=== PATIENT | female | born 2000 | race Caucasian/White ===

== ENCOUNTER 2025-03-16 21:45 | Emergency (ER) | payer OTHER ==
[~2025-03-16] VITALS: Ht 165.1 cm; Wt 48.4 kg
[2025-03-16 21:50] VITALS: TEMP 96.8
[2025-03-16 22:20] LABS: MEAN PLATELET VOLUME 7.5 FL (7.4-10.4); RED CELL DISTRIBUTION WIDTH 12.4 % (11.5-14.5)
[2025-03-16 22:45] LABS: CREATININE 0.76 MG/DL (0.40-0.90); TOTAL CARBON DIOXIDE 26.2 MMOL/L (24-32); eCRCL 89 ML/MIN; eGFR > 90 ML/MIN
[2025-03-16] MEDS ORDERED: morphine 4 MG/ML inj SYRINge IV PRN (22:50)
--- NOTE | 2025-03-16 22:59 | Physician Documentation ---
History of Present Illness ~ Chief Complaint: Abdominal Pain Stated Complaint: ABD PAIN Time Seen by MD: 22:46 Source: patient Mode of Arrival: POV Exam Limitations: no limitations HPI Chief Complaint: Abdominal pain Caveat: None Independent Historians: None History of Present Illness: Patient is a 24-year-old woman who comes in complaining of epigastric and right upper quadrant abdominal pain. Patient states that she has had this before and was diagnosed with gallstones 8-9 months ago. Patient states that she has had two or three attacks this week. Earlier this evening she had some burning pain. Patient had a slice of pizza her parent's house for dinner and after that developed worsening severe pain. Pain is nonradiating. She also complains of a burning pain in her chest and pain radiating up into the chest. Patient denies any fever. Review of systems: All systems were reviewed and are negative except for what is indicated in the history of present illness. Past Medical History: Cholelithiasis Past Surgical History: None Social History: No tobacco use, no alcohol use, no drug use Medications: Reviewed as documented Nursing Notes Allergies: Reviewed as documented in Nursing Notes Medication Reconciliation Allergies: Coded Allergies: No Known Allergies (Unverified , 03/16/25) Review of Systems All Other Systems at this time: Reviewed and Negative ROS Patient denies any other acute symptoms other than above. All other systems are negative Physical Exam Vital Signs: RN Vital Signs have been reviewed: Yes, Temperature: 96.8, Source: Temporal, Heart Rate: 72, Respiratory Rate: 16, BP: 128/77, Pulse Oximetry: 99, Weight: 48.350 Pulse Oximetry Reflects: adequate oxygenation Physical Exam General Appearance: Moderate distress HEENT: Normal OP, moist oral mucosa, PERRL, EOMI Neck: supple, normal ROM, trachea midline Pulmonary: No respiratory distress, CTA, BS equal Cardiac: RRR, no murmur, rub or gallop, GI: nondistended, soft, RIGHT UPPER QUADRANT AND EPIGASTRIC TENDERNESS, normal bowel sounds, no guarding, no rebound Extremities: normal ROM, no swelling, non-tender Skin: intact, dry, warm, no rashes Neuro: AAOx3, speech is clear, no focal motor weakness Psych: normal affect, good eye contact, no apparent hallucination, normal speech Progress Results/Orders Results/Orders Orders - MADALYN RUTLEDGE MD Morphine 4mg/Ml Inj. (Morphine Inj.) (03/16/25 22:50) Ed Iv Pain Medications (03/16/25 22:46) Ultrasound Of Abdomen (03/16/25 22:46) Saline Lock (03/16/25 22:46) Completed Orders - MADAYLN RUTLEDGE MD Hcg, Ur Ql (03/16/25 21:53) Cbc/Diff (03/16/25 21:53) BMP (03/16/25 21:53) Lipase (03/16/25 21:53) CMP (03/16/25 21:53) Ondansetron Inj. (Zofran 4mg/2ml Vial) (03/16/25 22:50) Normal Saline 1000ml (0.9% Sodium Chlori (03/16/25 22:50) Ultrasound Of Abdomen (03/16/25 22:46) Ketorolac Trometh 15mg/Ml Vial (Toradol (03/16/25 22:50) Ua W/Microscopic, Cult If Ind (03/16/25 23:13) Medications Received in ER Medications (Trade) Dose Ordered Sig/Rey Route PRN Reason Start Time Stop Time Status Last Admin Dose Admin (Zofran 4mg/2ml vial) 4 mg ONCE ONCE IV 03/16/25 22:50 03/16/25 22:51 DC 03/16/25 23:12 4 MG (0.9% sodium chloride (NS) 1000ml IV soln) 1,000 ml ONCE ONCE IVB 03/16/25 22:50 03/16/25 22:51 DC 03/16/25 23:12 1,000 ML (Toradol injection) 15 mg ONCE ONCE IV 03/16/25 22:50 03/16/25 22:51 DC 03/16/25 23:12 15 MG Vital Signs 03/16/25 03/16/25 03/16/25 03/17/25 21:50 22:50 22:52 00:03 Temp 96.8 Pulse 104 72 64 Resp 15 18 16 16 B/P (MAP) 122/82 128/77 (94) 100/71 (81) Pulse Ox 99 99 100 03/17/25 01:27 Pulse 53 Resp 16 B/P (MAP) 94/57 (69) Pulse Ox 100 Laboratory Tests Test 03/16/25 22:12 03/16/25 23:13 White Blood Count 7.8 Red Blood Count 4.58 Hemoglobin 14.5 Hematocrit 41.0 Mean Corpuscular Volume 89.7 Mean Corpuscular Hemoglobin 31.6 H Mean Corpuscular Hemoglobin Concent 35.2 Red Cell Distribution Width 12.4 Platelet Count 387 Mean Platelet Volume 7.5 Neutrophils (%) (Auto) 58.4 Lymphocytes (%) (Auto) 31.8 Monocytes (%) (Auto) 8.0 Eosinophils (%) (Auto) 1.2 Basophils (%) (Auto) 0.6 Neutrophils # (Auto) 4.5 Lymphocytes # (Auto) 2.5 Monocytes # (Auto) 0.6 Eosinophils # (Auto) 0.1 Basophils # (Auto) 0.0 CBC Comment Sodium Level 137 Potassium Level 3.8 Chloride Level 103 Carbon Dioxide Level 26.2 Anion Gap 8 Blood Urea Nitrogen 15 Creatinine 0.76 Estimated GFR/1.73 m2 > 90 BUN/Creatinine Ratio 19.7 Glucose Level 89 Calcium Level 9.2 Total Bilirubin 0.4 Aspartate Amino Transf (AST/SGOT) 10 Alanine Aminotransferase (ALT/SGPT) 24 Alkaline Phosphatase 88 Total Protein 8.1 Albumin 4.5 Globulin 3.6 Albumin/Globulin Ratio 1.3 Lipase 26 Chemistry Comments Urine Specimen Description Cln catch midstream Urine Color Straw Urine Clarity Slightly cloudy Urine pH 6.0 Urine Specific [place] >=1.030 Urine Protein Trace Urine Glucose (UA) Negative Urine Ketones Trace H Urine Occult Blood Large H Urine Nitrite Negative Urine Bilirubin Negative Urine Urobilinogen 0.2 Urine Leukocyte Esterase Negative Urine RBC 50-100 Urine WBC 0-4 Urine Squamous Epithelial Cells Moderate Urine Bacteria Few Urine Mucus Few Urine Culture Indicated Not ind Volume Urine Centrifuged 10 ml Urine HCG, Qualitative Negative Urine Comment Medical Decision Making Findings Differential diagnosis includes but is not limited to: Cholelithiasis, biliary colic, choledocholithiasis, acute cholecystitis, pancreatitis, gastritis, hepatitis Abdominal ultrasound, indication: Gallstones Impression: 1. Nonmobile cholelithiasis and gallbladder wall thickening. These findings may be consistent with acute cholecystitis in the appropriate clinical setting. Laboratory data independent interpretation: CBC: Normal CMP: Normal, normal LFTs Lipase: 26 Urinalysis: Unremarkable, contaminated specimen Urine : Negative Emergency department course/medical decision-making: PATIENT PRESENTS WITH THE ACUTE ABDOMINAL PAIN CONSISTENT WITH BILIARY COLIC. I DO NOT SUSPECT THE PATIENT HAS ACUTE CHOLECYSTITIS. SHE IS AFEBRILE AND HAS A NORMAL WHITE BLOOD CELL COUNT. HOWEVER SHE MAY HAVE AN EARLY CHOLECYSTITIS. SHE IS GOING TO BE DISCHARGED AND INSTRUCTED TO FOLLOW UP WITH HER PRIMARY CARE DOCTOR AND DR. STOVALL. PATIENT'S PAIN HAS RESOLVED AFTER TORADOL 15 MG IV AND MORPHINE 4 MG IV AND ZOFRAN 4 MG IV. SHE WAS ALSO GIVEN 1 L OF IV NORMAL SALINE. PATIENT HAS BEEN HAVING RECURRENT ACUTE ABDOMINAL PAIN OVER THE LAST WEEK. THIS IS NOT THOUGHT TO BE ACUTE CHOLECYSTITIS. PATIENT ALSO HAD A NEGATIVE PAPPAS'S SIGN. ALL OF THE ABOVE REVIEWED AND DISCUSSED WITH THE PATIENT PRIOR TO DISCHARGE. Departure Time of Disposition: 01:55 Disposition: HOME / SELF CARE / HOMELESS Impression: Primary Impression: Recurrent biliary colic Additional Impression: Cholelithiasis Qualified Codes: K80.20 - Calculus of gallbladder without cholecystitis without obstruction Condition: Improved Discharge Instructions: Biliary Colic, Adult, Cholelithiasis Additional Instructions: RECOMMEND FOLLOWING UP WITH [facility] OR ANOTHER PRIMARY CARE DOCTOR SOON POSSIBLE. CALLED DR. STOVALL'S OFFICE. HE IS A GENERAL SURGEON AND MAY BE ABLE TO SEE YOU. RETURN TO THE EMERGENCY DEPARTMENT IF YOU HAVE RECURRENT PERSISTENT ABDOMINAL PAIN OR IF YOU DEVELOP A FEVER. AVOID FRIED FOODS AND FATTY FOODS. Referrals: DEVI STOVALL MD Education Educated: Patient Educated regarding: diagnosis, treatment, need for follow up Signature Scribe Signature: No scribe Attestation: No scribe MADALYN RUTLEDGE MD Mar 16, 2025 22:59
[2025-03-16] MEDS: ondansetron/PF 4mg/2ml inj IV ONE (23:12)
[2025-03-16] MEDS: normal saline 1000ML IV soln IVB ONE (23:12)
[2025-03-16] MEDS: ketorolac trometh 15mg/ml vial 15 MG/ML ML IV ONE (23:12)
[2025-03-16 23:25] LABS: URINE HCG NEGATIVE (NEG)
[2025-03-16 23:26] LABS: LEUKOCYTE ESTERASE ,URINE NEGATIVE (Neg); NITRITES, URINE NEGATIVE (Neg); OCCULT BLOOD,URINE LARGE (Neg); UA COLLECTION TYPE CLN CATCH MIDSTREAM
[2025-03-16 23:31] LABS: MUCUS STRANDS FEW /LPF (Neg); SQUAMOUS EPITHELIAL CELL,UR MODERATE /LPF (FEW)
--- NOTE | 2025-03-16 23:49 | RADIOLOGY REPORT ---
INDICATION: Abdominal Pain R/O Gallbladder TECHNIQUE: Multiple real-time sonographic images were obtained of the right upper quadrant. COMPARISON: None FINDINGS: The liver demonstrates normal homogeneous echotexture without focal mass lesions. The liver measures 13.7 cm. Normal hepatopetal portal flow identified. No evidence of pleural effusion or abd ominal ascites. There is no intrahepatic or extrahepatic ductal dilatation. The common duct measures 0.3 cm. Nonmobile gallstones identified within the gallbladder. The gallbladder wall is mildly thickened, brett suring up to 0.4 cm. Negative sonographic johnson's sign. The right kidney measures 10.1 cm. The right kidney is normal in contour, size, and shape. The echoge nicity is normal. There is no hydronephrosis. The pancreas is normal. IMPRESSION: 1. Nonmobile cholelithiasis and gallbladder wall thickening. These findings may be consistent with a cute cholecystitis in the appropriate clinical setting.
[2025-03-17 01:27] VITALS: BP 94/57; PULSE 53; RESP 16; O2SAT 100
== END 2025-03-17 02:12 | disposition home or self-care (01) ==
LOC: ER 21:47
DX: K80.20 Calculus of gallbladder without cholecystitis without obstruction (principal); R07.9 Chest pain, unspecified
CPT/HCPCS: 36415; 76700; 80053; 81001; 81025; 83690; 85025; 96361; 96374; 96375; 99285; J1885; J2405; J7030